=== PATIENT | female | born 1970 | race Caucasian/White ===

== ENCOUNTER 2016-10-26 14:09 | Emergency (ER) | payer MEDICAID ==
[2016-10-26] MEDS ORDERED: Sodium Chloride 0.9% 1,000 ML IV SCH (15:15)
--- NOTE | 2016-10-26 15:19 | EDM.PDOC ---
ED HISTORY OF PRESENT ILLNESS - General Chief Complaint: Respiratory Problem Stated Complaint: DR INSTRUCTED TO GO TO ER FLUID ON HEART Time Seen by Provider: 10/26/16 15:12 Source: Reports: Patient, Family, Old records, RN notes reviewed History Limitations: Reports: No limitations - History of Present Illness INITIAL COMMENTS - FREE TEXT/NARRATIVE: 45-year-old female presents emergency department today with complaint of shortness of breath she has a known history of breast cancer with metastases she is currently undergoing chemotherapy and radiation recently underwent CT scan today for ongoing shortness of breath CT scan demonstrates a moderate pleural effusion and moderate pericardial effusion. She was contacted by her primary oncologist told to report to the emergency department for further evaluation - Related Data Allergies/ADRs: Allergies Allergy/AdvReac Type Severity Reaction Status Date / Time No Known Allergies Allergy Verified 10/26/16 14:33 Home Meds: Home Meds ALPRAZolam [Alprazolam] 0.5 mg PO TID PRN 12/23/15 [History] Ondansetron [Zofran Odt] 8 mg PO Q6H PRN 12/23/15 [History] Acetaminophen/HYDROcodone [[place] 325-10 MG] 1 tab PO Q6H PRN 10/26/16 [History] Morphine Sulfate [Morphine Sulfate ER] 1 tab PO Q12H PRN 10/26/16 [History] Prochlorperazine [Take Home: Prochlorperazine 5 MG, 2 Tab Pack] 1 - 2 tab PO Q6H PRN 10/26/16 [History] Sulfamethoxazole/Trimethoprim [Sulfamethoxazole-Tmp Ds Tablet] 1 tab PO BID [History] Past Medical History [employer] History: Reports: Musculoskeletal History: Reports: Back pain, chronic, Neck pain, chronic, Osteoarthritis Psychiatric History: Reports: Anxiety Oncologic (Cancer) History: Reports: Breast Dermatologic History: Reports: Other (see below) Other Dermatologic History: radiation burn patient reports is improving. - Infectious Disease History Infectious Disease History: Reports: Chicken pox, Measles - Past Surgical History Female Surgical History: Reports: Breast biopsy, Mastectomy Musculoskeletal Surgical History: Reports: None Oncologic Surgical History: Reports: Biopsy of breast, Other (see below) Other Oncologic Surgeries/Procedures: right port-a-cath Dermatological Surgical History: Reports: None Social & Family History - Family History Cardiac: Reports: Hypertension Musculoskeletal: Reports: Arthritis - Tobacco Use Smoking Status *Q: Former Smoker Years of Tobacco use: 30 Packs/Tins Daily: 0 Used Tobacco, but Quit: No Second Hand Smoke Exposure: No - Caffeine Use Caffeine Use: Reports: Coffee - Alcohol Use Days Per Week of Alcohol Use: 0 - Recreational Drug Use Recreational Drug Use: No ED ROS GENERAL - Review of Systems Review Of Systems: See Below Constitutional: Denies: fever, chills HEENT: Reports: No symptoms Respiratory: Reports: Shortness of Breath Cardiovascular: Reports: Chest pain GI/Abdominal: Reports: No symptoms : Reports: no symptoms Musculoskeletal: Reports: no symptoms Skin: Reports: rash Neurological: Reports: No Symptoms ED EXAM, GENERAL - Physical Exam Exam: See Below Exam Limited By: No limitations General Appearance: alert, WD/WN, no apparent distress Head: atraumatic, normocephalic Neck: normal inspection, supple, non-tender, full range of motion Respiratory/Chest: no respiratory distress, normal breath sounds, no accessory muscle use, crackles, wheezing Cardiovascular: regular rate, rhythm, no murmur GI/Abdominal: soft, non tender Course - Vital Signs Last Recorded V/S: Last Vital Signs Temp 96.6 F 10/26/16 14:30 Pulse 132 H 10/26/16 15:43 Resp 23 H 10/26/16 15:43 BP 128/86 10/26/16 15:43 Pulse Ox 93 L 10/26/16 15:43 - Orders/Labs/Meds Orders: Active Orders 24 hr Category Date Time Status EKG Documentation Completion [RC] ASDIRECTED Care 10/26/16 15:13 Active Sodium Chloride 0.9% [Normal Saline] 1,000 ml Med 10/26/16 15:15 Active IV ASDIRECTED EKG 12 Lead [EK] Urgent Ther 10/26/16 15:12 Ordered Medication Orders Sodium Chloride (Normal Saline) 1,000 mls @ 250 mls/hr IV ASDIRECTED KRISTOPHER Last Admin: 10/26/16 15:42 Dose: 250 mls/hr Labs: Laboratory Tests 10/26/16 10/26/16 10/26/16 Range/Units 15:12 15:30 15:30 WBC 14.7 H (4.5-11.0) K/uL RBC 4.34 (3.30-5.50) M/uL Hgb 12.2 D (12.0-15.0) g/dL Hct 36.7 (36.0-48.0) % MCV 85 (80-98) fL MCH 28 (27-31) pg MCHC 33 (32-36) % Plt Count 645 H (150-400) K/uL Neut % (Auto) 90 H (36-66) % Lymph % (Auto) 2 L (24-44) % [place] % (Auto) 7 H (2-6) % Eos % (Auto) 1 L (2-4) % Baso % (Auto) 0 (0-1) % PT 11.5 (9.5-12.0) sec INR 1.08 (0.80-1.20) Sodium 132 L (140-148) mmol/L Potassium 4.2 (3.6-5.2) mmol/L Chloride 93 L (100-108) mmol/L Carbon Dioxide 27 (21-32) mmol/L Anion Gap 16.2 H (5.0-14.0) mmol/L BUN 16 (7-18) mg/dL Creatinine 0.9 (0.6-1.0) mg/dL Est Cr Clr Drug Dosing 84.46 mL/min Estimated GFR (MDRD) > 60 (>60) Glucose 124 H (74-106) mg/dL Lactic Acid (0.4-2.0) mmol/L Calcium 8.5 (8.5-10.1) mg/dL Total Bilirubin 0.3 (0.2-1.0) mg/dL AST 33 (15-37) U/L ALT 34 (12-78) U/L Alkaline Phosphatase 232 H (46-116) U/L Troponin I < 0.017 (0.000-0.056) ng/mL Total Protein 6.1 L (6.4-8.2) g/dL Albumin 2.2 L (3.4-5.0) g/dL Globulin 3.9 H (2.3-3.5) g/dL Albumin/Globulin Ratio 0.6 L (1.2-2.2) 10/26/16 Range/Units 15:30 WBC (4.5-11.0) K/uL RBC (3.30-5.50) M/uL Hgb (12.0-15.0) g/dL Hct (36.0-48.0) % MCV (80-98) fL MCH (27-31) pg MCHC (32-36) % Plt Count (150-400) K/uL Neut % (Auto) (36-66) % Lymph % (Auto) (24-44) % [place] % (Auto) (2-6) % Eos % (Auto) (2-4) % Baso % (Auto) (0-1) % PT (9.5-12.0) sec INR (0.80-1.20) Sodium (140-148) mmol/L Potassium (3.6-5.2) mmol/L Chloride (100-108) mmol/L Carbon Dioxide (21-32) mmol/L Anion Gap (5.0-14.0) mmol/L BUN (7-18) mg/dL Creatinine (0.6-1.0) mg/dL Est Cr Clr Drug Dosing mL/min Estimated GFR (MDRD) (>60) Glucose (74-106) mg/dL Lactic Acid 2.1 H (0.4-2.0) mmol/L Calcium (8.5-10.1) mg/dL Total Bilirubin (0.2-1.0) mg/dL AST (15-37) U/L ALT (12-78) U/L Alkaline Phosphatase (46-116) U/L Troponin I (0.000-0.056) ng/mL Total Protein (6.4-8.2) g/dL Albumin (3.4-5.0) g/dL Globulin (2.3-3.5) g/dL Albumin/Globulin Ratio (1.2-2.2) Meds: Medications Generic Name Dose Route Start Last Admin Trade Name Freq PRN Reason Stop Dose Admin Sodium Chloride 1,000 mls @ 250 mls/hr 10/26/16 15:15 10/26/16 15:42 Normal Saline IV 250 mls/hr ASDIRECTED KRISTOPHER Administration Departure - Departure Time of Disposition: 16:29 Disposition: DC/Tfer to Acute Hospital 02 Condition: fair Clinical Impression: Pericardial effusion, Pleural effusion Forms: ED Department Discharge - My Orders Last 24 Hours: My Active Orders 10/26/16 15:12 EKG 12 Lead [EK] Urgent 10/26/16 15:13 EKG Documentation Completion [RC] ASDIRECTED 10/26/16 15:15 Sodium Chloride 0.9% [Normal Saline] 1,000 ml IV ASDIRECTED - Assessment/Plan Last 24 Hours: My Active Orders 10/26/16 15:12 EKG 12 Lead [EK] Urgent 10/26/16 15:13 EKG Documentation Completion [RC] ASDIRECTED 10/26/16 15:15 Sodium Chloride 0.9% [Normal Saline] 1,000 ml IV ASDIRECTED Plan: Assessment Breast cancer with metastases complicated by pleural effusion and pericardial effusion Plan called Discussed case with hospitalist supervisor electronics inspection at [facility] kindly accept the patient in transport will be transported via EMS services ground
[2016-10-26 16:37] VITALS: BP 142/81
== END 2016-10-26 17:12 ==
LOC: JP.ED 14:09
DX: I31.3 Pericardial effusion (noninflammatory) (principal); J90 Pleural effusion, not elsewhere classified; F41.9 Anxiety disorder, unspecified; Z87.891 Personal history of nicotine dependence; Z79.899 Other long term (current) drug therapy; C50.912 Malignant neoplasm of unspecified site of left female breast; C77.3 Secondary and unspecified malignant neoplasm of axilla and upper limb lymph nodes; R93.8 Abnormal findings on diagnostic imaging of other specified body structures; K76.9 Liver disease, unspecified; R59.0 Localized enlarged lymph nodes; R91.8 Other nonspecific abnormal finding of lung field
CPT/HCPCS: 36415; 80053; 83605; 84484; 85025; 85610; 93005; 96360; 99285; J7040; 70491; 70491-26; 71275; 71275-26; 74177; 74177-26